=== PATIENT | female | born 1955 | race Caucasian/White ===

== ENCOUNTER 2020-04-09 05:16 | Inpatient (IN) | payer OTHER ==
[~2020-04-09] VITALS: Ht 152.4 cm; Wt 66.3 kg
[2020-04-09] VITALS (8 sets, daily range): BP systolic 100–124; BP diastolic 59–72
[2020-04-09] MEDS ORDERED: OMEP40CA97 PO (05:32)
[2020-04-09] MEDS ORDERED: MULT1TAB8 PO (05:32)
[2020-04-09] MEDS ORDERED: GI COCKTAIL 50ML BTL(HYOSCYAMINE/MAALOX/LIDOCAINE VISCOUS)(1:3:1) PO ONE (05:45)
[2020-04-09] MEDS ORDERED: ISOVUE-370 76% 100ML VIAL As Ordered ONE (05:46)
[2020-04-09 06:04] LABS: BASO # 0.1 10^3/uL (0.0-0.2); BASO % 0.5 % (0.0-1.0); EOS # 0.2 10^3/uL (0.0-0.5); EOS % 1.6 % (0.0-3.0); HEMATOCRIT 43.8 % (36.0-47.0); HEMOGLOBIN 13.5 g/dl (12.0-15.5); LYMPH # 2.1 10^3/uL (1.5-5.0); LYMPH % 19.3 % (24.0-44.0); MEAN CORPUSCULAR HEMOGLOBIN 28.7 pg (27.0-33.0); MEAN CORPUSCULAR HGB CONC 30.8 g/dl (32.0-36.5); MEAN CORPUSCULAR VOLUME 93.2 fl (80.0-96.0); MONO # 0.5 10^3/uL (0.0-0.8); MONO % 4.2 % (0.0-5.0); NEUTROPHILS # 7.9 10^3/uL (1.5-8.5); NEUTROPHILS % 73.3 % (36.0-66.0); PLATELET COUNT, AUTOMATED 249 10^3/uL (150-450); WHITE BLOOD COUNT 10.8 10^3/uL (4.0-10.0)
[2020-04-09 06:30] LABS: ALBUMIN 3.1 GM/DL (3.2-5.2); ALT/SGPT 23 U/L (12-78); BILIRUBIN,DIRECT < 0.1 MG/DL (0.0-0.2); BILIRUBIN,TOTAL 0.2 MG/DL (0.2-1.0); BLOOD UREA NITROGEN 12 MG/DL (7-18); CALCIUM LEVEL 8.1 MG/DL (8.8-10.2); CARBON DIOXIDE LEVEL 26 MEQ/L (21-32); CHLORIDE LEVEL 110 MEQ/L (98-107); CK-MB VALUE MASS < 1.0 NG/ML (<3.6); CPK CREATINE PHOSPHOKINASE 75 U/L (26-192); CREATININE FOR GFR 0.68 MG/DL (0.55-1.30); GLOMERULAR FILTRATION RATE > 60.0 (>45); GLUCOSE, FASTING 127 MG/DL (70-100); LIPASE 119 U/L (73-393); MB/CK RELATIVE INDEX 1.33 (< OR =4); POTASSIUM SERUM 3.6 MEQ/L (3.5-5.1); SODIUM LEVEL 143 MEQ/L (136-145); TOTAL PROTEIN 6.1 GM/DL (6.4-8.2); TROPONIN I < 0.02 NG/ML (< 0.10)
--- NOTE | 2020-04-09 07:50 | REPVR ---
PROCEDURE INFORMATION: Exam: CT Angiography Chest With Contrast Exam date and time: 04/09/2020 5:38 AM Age: 64 years old Clinical indication: Chest pain; Type not specified; Additional info: Substernal pain TECHNIQUE: Imaging protocol: Computed tomographic angiography of the chest with intravenous contrast. 3D rendering (Not supervised by radiologist): MIP and/or 3D reconstructed images were created by the technologist. Radiation optimization: All CT scans at this facility use at least one of these dose optimization techniques: automated exposure control; mA and/or kV adjustment per patient size (includes targeted exams where dose is matched to clinical indication); or iterative reconstruction. Contrast material: ISO; Contrast volume: 100 ml; Contrast route: INTRAVENOUS (IV); COMPARISON: No relevant prior studies available. FINDINGS: Pulmonary arteries: Normal. No pulmonary emboli. Aorta: Atherosclerotic disease of the thoracic aorta. Lungs: Bilateral dependent atelectasis. Pleural space: Unremarkable. No pneumothorax. No pleural effusion. Heart: Unremarkable. No cardiomegaly. No pericardial effusion. Lymph nodes: Unremarkable. No enlarged lymph nodes. Bones/joints: Multilevel degenerative disease of thoracic spine. Dextroscoliosis. Cervical spinal fusion hardware. Soft tissues: Unremarkable. IMPRESSION: No acute pulmonary embolic disease. Bilateral dependent atelectasis. Electronically signed by: Yo Caal On 04/09/2020 07:49:54 AM
--- NOTE | 2020-04-09 07:58 | REPVR ---
PROCEDURE INFORMATION: Exam: CT Abdomen And Pelvis With Contrast Exam date and time: 04/09/2020 5:38 AM Age: 64 years old Clinical indication: Abdominal pain; Generalized TECHNIQUE: Imaging protocol: Computed tomography of the abdomen and pelvis with intravenous contrast. Radiation optimization: All CT scans at this facility use at least one of these dose optimization techniques: automated exposure control; mA and/or kV adjustment per patient size (includes targeted exams where dose is matched to clinical indication); or iterative reconstruction. Contrast material: ISO; Contrast volume: 100 ml; Contrast route: INTRAVENOUS (IV); COMPARISON: No relevant prior studies available. FINDINGS: Liver: Hepatomegaly and geographic steatosis. Indeterminate 1.1 cm low-attenuation right hepatic lobe lesion. Gallbladder and bile ducts: Status post cholecystectomy. Pancreas: Pancreas divisum. Spleen: Normal. No splenomegaly. Adrenal glands: Bilateral adrenal hyperplasia. Kidneys and ureters: Right renal cyst. Stomach and bowel: Status post Sharlene-en-Y gastric bypass. Status post right hemicolectomy and small bowel resection. Bowel wall thickening involving multiple loops of small and large bowel possibly reflecting under distension or enterocolitis. Appendix: No evidence of appendicitis. Intraperitoneal space: Palomo pneumoperitoneum and small complex ascites. Vasculature: Mild atherosclerotic disease. Lymph nodes: Mesenteric adenopathy. Urinary bladder: Unremarkable as visualized. Reproductive: Unremarkable as visualized. Bones/joints: Postoperative changes the lumbar spine. Marked kyphosis the thoracolumbar spine multilevel spinal canal and neural foraminal stenosis. Soft tissues: Unremarkable. IMPRESSION: Palomo pneumoperitoneum and small complex ascites. Correlate for recent abdominal surgery. Alternatively hollow viscus perforation is considered. Hepatomegaly and geographic steatosis. Indeterminate 1.1 cm low-attenuation right hepatic lobe lesion. Status post Sharlene-en-Y gastric bypass. Status post right hemicolectomy and small bowel resection. Bowel wall thickening involving multiple loops of small and large bowel possibly reflecting under distension or enterocolitis. COMMENTS: Consistent with the [employer]'s Incidental Findings Committee white paper (J Am Lorie Radiol 2018): Any incidental renal lesion less than 1 cm or classified as too small to characterize, or any incidental cystic renal lesion characterized as simple-appearing, is likely benign. No follow-up imaging is recommended for these lesions per consensus recommendations based on imaging criteria. Electronically signed by: Yo Caal On 04/09/2020 07:58:04 AM
[2020-04-09] MEDS ORDERED: metroNIDAZOLE 500 MG in IV 1 EA IV ONE (08:30)
[2020-04-09] MEDS ORDERED: CIPROFLOXACIN 400 MG in IV 1 EA IV ONE (08:30)
[2020-04-09] MEDS ORDERED: NS 1,000 ML IV SCH (08:30)
[2020-04-09] MEDS ORDERED: ONDANSETRON 4MG/2ML VIAL IV ONE (08:45)
[2020-04-09] MEDS ORDERED: MORPHINE 2 MG/ML 1ML VIAL (J2270) IV PRN (08:45)
[2020-04-09] MEDS ORDERED: ALBU8.5H INH (08:46)
[2020-04-09] MEDS ORDERED: VITA100018 PO (08:46)
[2020-04-09] MEDS ORDERED: D31000TA2 PO (08:46)
[2020-04-09] MEDS ORDERED: TAMO20TA8 PO (08:46)
[2020-04-09] MEDS ORDERED: RA B2500 PO (08:46)
[2020-04-09] MEDS ORDERED: CALC600T61 PO (08:46)
[2020-04-09 09:25] LABS: RSV AMPLIFICATION NEGATIVE (NEGATIVE)
[2020-04-09] MEDS ORDERED: LR 1,000 ML IV SCH ×3 (09:58→14:00)
[2020-04-09] MEDS ORDERED: KETOROLAC 30 MG/ML 1ML VIAL IV PRN (10:00)
[2020-04-09] MEDS ORDERED: BUPIVACAINE HCL 0.25% 30ML VIAL As Ordered ONE (11:14)
[2020-04-09] MEDS ORDERED: propofoL 200 MG/20 ML VIAL As Ordered ONE (11:15)
[2020-04-09] MEDS ORDERED: METOCLOPRAMIDE INJ 10MG/2ML VIAL (J2765 PER 1) As Ordered ONE (11:15)
[2020-04-09] MEDS ORDERED: ONDANSETRON 4MG/2ML VIAL As Ordered ONE (11:15)
[2020-04-09] MEDS ORDERED: MIDAZOLAM INJ 2MG/2ML VIAL (J2250 PER 1MG) As Ordered ONE (11:15)
[2020-04-09] MEDS ORDERED: SUGAMMADEX SODIUM 500 MG/5 ML VIAL (BRIDION) As Ordered ONE (11:15)
[2020-04-09] MEDS ORDERED: fentaNYL 250 MCG/5 ML INJECTION (J3010) As Ordered ONE (11:15)
[2020-04-09] MEDS ORDERED: LIDOCAINE 2% 100MG/5ML SDV (FOR ANES.) As Ordered ONE (11:15)
[2020-04-09] MEDS ORDERED: PHENYLephrine HCL 500 MCG/5 ML (100MCG/ML) SYRINGE (J2370) As Ordered ONE (11:15)
[2020-04-09] MEDS ORDERED: dexameTHASONE 4 MG/ML 1ML VIAL (J1100 PER 1MG) As Ordered ONE (11:15)
[2020-04-09] MEDS ORDERED: SUCCINYLCHOLINE 100 MG/5 ML SYRINGE (J0330) As Ordered ONE (11:15)
[2020-04-09] MEDS ORDERED: ROCURONIUM BROMIDE 50 MG/5 ML VIAL As Ordered ONE (11:15)
[2020-04-09] MEDS ORDERED: ePHEDrine SULFATE 25 MG/5 ML(5MG/ML) SYRINGE As Ordered ONE ×3 (11:23→12:45)
[2020-04-09] MEDS ORDERED: HYDROmorphone HCL 2 MG/ML 1ML VIAL (J1170) As Ordered ONE (11:43)
[2020-04-09] MEDS ORDERED: ACETAMINOPHEN 1000MG 100ML IV BTL (OFIRMEV) (J0131 PER 10MG) As Ordered ONE (12:37)
[2020-04-09] MEDS ORDERED: LACRILUBE (AKWA TEARS) OPHTH OINT 3.5 GM As Ordered ONE (13:17)
[2020-04-09] MEDS ORDERED: ALBUTEROL 90 MCG/ACT 8GM HFA INHALER INH PRN (13:45)
[2020-04-09] MEDS ORDERED: oxyCODONE 5MG TAB PO PRN (14:00)
[2020-04-09] MEDS ORDERED: fentaNYL 100 MCG/2 ML INJECTION (J3010) IV PRN (14:00)
[2020-04-09] MEDS ORDERED: HYDROMORPHONE HCL 0.5 MG/ 0.5 ML SYRINGE (J1170 PER 1) IV PRN (14:00)
[2020-04-09] MEDS ORDERED: ONDANSETRON 4MG/2ML VIAL IV PRN (14:00)
[2020-04-09] MEDS: PANTOPRAZOLE 40MG VIAL (C9113 PER 1) IV SCH ×2 (15:55→21:47)
[2020-04-09] MEDS: metroNIDAZOLE 500 MG in IV 1 EA IV SCH (17:07)
[2020-04-09] MEDS: CIPROFLOXACIN 400 MG in IV 1 EA IV SCH (22:02)
[2020-04-09] MEDS: MORPHINE 2 MG/ML 1ML VIAL (J2270) IV PRN (22:02)
[2020-04-09] MEDS: NS 1,000 ML IV SCH (22:03)
[2020-04-10] MEDS: metroNIDAZOLE 500 MG in IV 1 EA IV SCH ×3 (01:32→16:26)
[2020-04-10] MEDS: MORPHINE 2 MG/ML 1ML VIAL (J2270) IV PRN (01:37)
[2020-04-10 02:00] VITALS: BP 125/62
[2020-04-10 06:00] VITALS: BP 105/49
[2020-04-10] MEDS: CIPROFLOXACIN 400 MG in IV 1 EA IV SCH ×2 (07:57→21:51)
[2020-04-10] MEDS: NS 1,000 ML IV SCH (07:57)
[2020-04-10 08:10] LABS: BASO % 0.1 % (0.0-1.0); EOS % 0.2 % (0.0-3.0); LYMPH # 1.2 10^3/uL (1.5-5.0); LYMPH % 9.5 % (24.0-44.0); MEAN CORPUSCULAR HEMOGLOBIN 30.1 pg (27.0-33.0); MEAN CORPUSCULAR HGB CONC 31.8 g/dl (32.0-36.5); MEAN CORPUSCULAR VOLUME 94.7 fl (80.0-96.0); MONO # 0.8 10^3/uL (0.0-0.8); MONO % 6.1 % (0.0-5.0); NEUTROPHILS # 10.3 10^3/uL (1.5-8.5); NEUTROPHILS % 83.7 % (36.0-66.0); PLATELET COUNT, AUTOMATED 179 10^3/uL (150-450); RED BLOOD COUNT 3.59 10^6/uL (4.00-5.40); WHITE BLOOD COUNT 12.3 10^3/uL (4.0-10.0)
[2020-04-10 08:11] LABS: HEMOGLOBIN 10.8 g/dl (12.0-15.5)
--- NOTE | 2020-04-10 09:22 | ECGEPIP ---
[facility] - ED Test Date: 2020-04-09 Pat Name: MAYNOR REECE Department: Room: - Gender: Female Development Lead: : 1955 Requested By: HERNANDO Castaneda Order Number: [id number] Reading MD: Ivy Reilly Measurements Intervals [place] Rate: 59 P: 38 GA: 126 QRS: -18 QRSD: 94 T: 60 QT: 454 QTc: 450 Interpretive Statements SINUS BRADYCARDIA NSTTW abnormalities No prior Electronically Signed on 04-10-2020 9:22:25 EST by Ivy Reilly
[2020-04-10 09:25] LABS: BLOOD UREA NITROGEN 6 MG/DL (7-18); CARBON DIOXIDE LEVEL 27 MEQ/L (21-32); CHLORIDE LEVEL 113 MEQ/L (98-107); CREATININE FOR GFR 0.46 MG/DL (0.55-1.30); GLOMERULAR FILTRATION RATE > 60.0 (>45); GLUCOSE, FASTING 79 MG/DL (70-100); POTASSIUM SERUM 3.9 MEQ/L (3.5-5.1); SODIUM LEVEL 144 MEQ/L (136-145)
[2020-04-10 10:00] VITALS: BP 104/55
[2020-04-10] MEDS: PANTOPRAZOLE 40MG VIAL (C9113 PER 1) IV SCH ×2 (10:10→21:51)
[2020-04-10] MEDS: ACETAMINOPHEN 325 MG/10.15 ML UDC PO PRN ×3 (10:11→22:03)
[2020-04-10 14:00] VITALS: BP 115/61
[2020-04-10 18:00] VITALS: BP 113/58
[2020-04-11] MEDS: metroNIDAZOLE 500 MG in IV 1 EA IV SCH (00:49)
[2020-04-11] MEDS: ONDANSETRON 4MG/2ML VIAL IV PRN ×2 (04:01→10:07)
[2020-04-11 06:00] VITALS: BP 124/66
[2020-04-11 07:30] LABS: BASO % 0.3 % (0.0-1.0); EOS # 0.2 10^3/uL (0.0-0.5); EOS % 1.6 % (0.0-3.0); HEMATOCRIT 36.1 % (36.0-47.0); HEMOGLOBIN 11.5 g/dl (12.0-15.5); LYMPH # 1.2 10^3/uL (1.5-5.0); MEAN CORPUSCULAR HEMOGLOBIN 29.7 pg (27.0-33.0); MEAN CORPUSCULAR HGB CONC 31.9 g/dl (32.0-36.5); MEAN CORPUSCULAR VOLUME 93.3 fl (80.0-96.0); MONO # 0.7 10^3/uL (0.0-0.8); MONO % 6.2 % (0.0-5.0); NEUTROPHILS # 8.6 10^3/uL (1.5-8.5); NEUTROPHILS % 80.1 % (36.0-66.0); PLATELET COUNT, AUTOMATED 197 10^3/uL (150-450); RED BLOOD COUNT 3.87 10^6/uL (4.00-5.40); WHITE BLOOD COUNT 10.8 10^3/uL (4.0-10.0)
[2020-04-11] MEDS ORDERED: SODIUM CHLORIDE NASAL 0.65% SPRAY BTL (OCEAN) PRN (07:30)
[2020-04-11] MEDS: PANTOPRAZOLE 40MG VIAL (C9113 PER 1) IV SCH ×2 (09:33→21:20)
[2020-04-11] MEDS: CIPROFLOXACIN 400 MG in IV 1 EA IV SCH ×2 (09:33→21:20)
[2020-04-11 10:00] VITALS: BP 124/67
[2020-04-11 14:00] VITALS: BP 127/71
[2020-04-11] MEDS: ACETAMINOPHEN 325 MG/10.15 ML UDC PO PRN ×2 (14:57→22:57)
[2020-04-11 18:00] VITALS: BP 127/78
--- NOTE | 2020-04-11 20:45 | IPN ---
PROGRESS NOTE DATE: 04/11/2020 HISTORY: Patient is now postoperative day #2 from laparoscopic repair of a perforated ulcer of the jejunum just below her gastrojejunal anastomosis. Today, she reports that she just does not feel well, she feels at times chilled and last night was having some nausea. She did tolerate clear liquids pretty well yesterday. She reports she just feels dried out or dehydrated. VITAL SIGNS: Shows that she had a maximum temperature (T-max) early this morning of 100.3. She has otherwise been afebrile. Her pulse is in the 70s and 80s. Blood pressure is excellent and her room air oxygen saturation is in the mid to upper 90s. Intake and output shows that yesterday she had 2700 in with 1650 out. She does have a liter of urine output today and has had two bowel movements. PHYSICAL EXAMINATION: Patient is lying quietly in a darkened room, lying on her left side. She rouses readily to voice. Skin is warm and dry. Heart exam shows a regular rhythm and she is not tachycardiac. The abdomen is flat. She has bowel sounds present. She has no undue tenderness. LABORATORY STUDIES: Today, patient has only a CBC with a differential which shows a white count of 11, hemoglobin 12, hematocrit 36, and a platelet count of 197,000. Differential count shows 80% neutrophils, 11% lymphocytes, and 6% monocytes. IMPRESSION: Patient had been doing extremely well following her patched closure of her perforated jejunal ulcer. Today, she reports that she is feeling just unwell with a chilled feeling at times and she has had a low-grade temperature early this afternoon. She reports feeling dehydrated but I advised her that her urine output has been excellent and she took liquids well and I do not think dehydration is the issue. She was somewhat nauseous last evening and I think this may have followed a dose of Flagyl. PLAN: I will stop her Flagyl. We will follow her temperature. I will repeat another complete blood count (CBC) in the morning. It is certainly possible that this fever and chilled sensation represents results of peritoneal contamination but we will need to monitor her closely. I will allow her to take some full liquids today if she feels up to it. If she does not take liquids well, then we may wish to reinstitute some IV fluid.
[2020-04-11 22:00] VITALS: BP 130/83
[2020-04-12 06:00] VITALS: BP 132/68
[2020-04-12] MEDS: PIPERACILLIN/TAZOBACTAM SOD 3.375 GM in D5W MINI-BAG PLUS 50 ML IV SCH ×3 (09:53→20:46)
[2020-04-12] MEDS: PANTOPRAZOLE 40MG VIAL (C9113 PER 1) IV SCH ×2 (09:53→20:46)
[2020-04-12 10:00] VITALS: BP 120/70
[2020-04-12 14:00] VITALS: BP 121/74
--- NOTE | 2020-04-12 14:32 | IPN ---
PROGRESS NOTE DATE: 04/09/2020 HISTORY: Patient underwent a laparoscopic Stephen patch repair of a perforated gastrojejunal anastomotic ulcer yesterday. She has done very well since. She denies any significant abdominal pain. She had one dose of morphine very early this morning and had a dose of Tylenol at 10 o'clock this morning. She remains on Cipro and Flagyl. Vital signs show that she has had a maximum temperature of 99.9. Pulse is in the 70s, and her blood pressure is good. Intake and output show that she has had 500 mL of urine output so far today and remains on intravenous (IV) normal saline. PHYSICAL EXAMINATION: Patient is lying quietly in the hospital bed. She is alert and oriented. HEART: Shows a regular rhythm. ABDOMEN: Flat. Her dressings are clean and dry. She has some bowel sounds present, and the abdomen has only some very mild expected tenderness. LABORATORY STUDIES: This morning showed a white count of 12 with a differential showing 84% neutrophils, 10% lymphocytes, and 6% monocytes. Hemoglobin and hematocrit were 11 and 34. Chemistry profile showed sodium 144, potassium 3.9, chloride 113, CO2 of 27, BUN of 6, creatinine of 0.46, and a glucose of 79. Her lactic acid was normal at 0.8. IMPRESSION: Patient is doing very well postoperative day #1 from repair of her perforated ulcer. PLAN: I will allow the patient to take some clear liquids, but she was instructed to take these as small amounts during the course of the day. I will keep her on 50 mL an hour of normal saline. Protonix will be continued IV. Cipro and Flagyl will continue. I will recheck the complete blood count (CBC) in the morning.
--- NOTE | 2020-04-12 14:32 | HPE ---
HISTORY AND PHYSICAL DATE OF ADMISSION: 04/09/2020 ADMITTING DIAGNOSIS: Perforated viscus, possible perforated gastrojejunal anesthesia, status post gastric bypass. HISTORY OF PRESENT ILLNESS: The patient is a 64-year-old woman who was awakened at approximately 4 o'clock on the morning of April 09 by upper abdominal pain. She described it as being in the epigastrium and then across the abdomen and up into both shoulders. She is status post a Sharlene-en-Y gastric bypass approximately 5 years ago in [place]. She had been on omeprazole until fairly recently, when she stopped this thinking it was no longer important. She had been living in [place] at the time of her surgery but has now relocated and is now living in [place]. In the emergency department, she was found to have tenderness fairly diffusely in the abdomen. Her white blood cell count was only minimally elevated, but a CT scan of the abdomen and pelvis showed free air in the upper abdomen, particularly in the area anterior to her gastrojejunal anastomotic area. I was consulted, and the patient is now being admitted to undergo surgery for her perforation. ALLERGIES: Patient reports no known drug allergies. ADMISSION MEDICATIONS: - albuterol inhaler two puffs four times daily as needed for shortness of breath - biotin 2500 mcg by mouth daily - calcium carbonate 600 mg by mouth daily - cholecalciferol 1000 units by mouth daily - cyanocobalamin 1000 mcg by mouth daily - multivitamin daily - omeprazole 40 mg by mouth daily, although she has not been taking this recently - Tamoxifen 20 mg by mouth every night MEDICAL HISTORY: Patient denies any significant heart, lung, or endocrine problem. She was diagnosed with breast cancer several years ago and underwent a lumpectomy with sentinel lymph node biopsy on the right breast. She had postoperative radiation and remains on Tamoxifen. She is status post a gastric bypass. She is a former smoker, who reports a history of asthma. She does have a history of osteoarthritis and has had some significant spine surgery. SURGICAL HISTORY: Patient had undergone two sections many years ago. She subsequently had a dilatation and curettage (D and C). She has had surgery for an ankle fracture. She had a cervical spine fusion. She underwent a lower spine fusion at age 14. She had her gastric bypass approximately 5 years ago. Following her gastric bypass, she had two abdominal hernias repaired, which apparently were done laparoscopically also in [place]. Her most recent surgery was in early , and she had a laparoscopic cholecystectomy. FAMILY HISTORY: Noncontributory. SOCIAL HISTORY: Patient is . She is a former smoker and denies any significant alcohol intake. She reports her weight was approximately 240 pounds before her gastric bypass. REVIEW OF SYSTEMS: Patient denies any chest pain, palpitations, shortness of breath, cough, wheezing, or sputum production. She has had no dysuria or hematuria and denies any history of renal stones. She does have some occasional diarrhea. Bowel movements are somewhat irregular. She has had no melena or hematochezia. She had a colonoscopy to too long ago, within the last couple years. She does have some chronic back discomfort but is not currently on any medications for this. She denies any history of seizure or stroke. She has had no history of deep venous thrombosis (DVT) or pulmonary embolus (PE). PHYSICAL EXAMINATION: Reveals a thin, pleasant woman, appearing somewhat uncomfortably, lying on the stretcher in the emergency department. She is alert and oriented. Vital signs the emergency department show a pulse in the 60s with a blood pressure of approximately 110 systolic. Her pulse oximetry is good. Skin is perhaps mildly pale. Skin is otherwise warm and dry. Sclerae are anicteric. Neck is supple. Heart exam shows a regular rhythm, and she is not tachycardic. The lungs are generally clear bilaterally. The abdomen is perhaps mildly full. She has several small scars evident, consistent with prior laparoscopic surgery. There is no evident hernia currently. She does have some faint bowel sounds identified. There is moderate tenderness across the upper abdomen. There does seem to be some mild guarding. Lower extremities are without edema, and she has palpable pedal pulses as well as palpable radial pulses. LABORATORY STUDIES: Show a CBC with a white count of 11, hemoglobin 14, hematocrit 44, and a platelet count of 249,000. Differential count shows 73% neutrophils and 19% lymphocytes. Chemistry profile showed sodium 143, potassium 3.6, chloride 110, carbon dioxide 26, BUN 12, creatinine 0.68, and a glucose of 127. Lactic acid was 2.9. Liver function tests were normal. Total protein is 6.1 with an albumin of 3.1. She had a troponin of less than 0.02, and her lipase was normal at 119. Her respiratory disease panel showed her to be negative for COVID, influenza A and B, and respiratory syncytial virus (RSV). IMAGING: Included a CT angiogram of the chest. Apparently ordered because of discomfort extending into the epigastrium and lower chest. This showed no evidence of pulmonary emboli with a little bit of atelectasis bilaterally. A CT scan o the abdomen and pelvis revealed free air in the upper abdomen with evidence for her previous gastric bypass. She was noted to have a small amount of free intraperitoneal fluid. The gallbladder was surgically absent. I did not see any definite abdominal wall hernia or any definite abdominal wall mesh. IMPRESSION: 1. Perforated viscus, most likely a perforation of her gastrojejunal anastomosis from ulceration. 2. Status post Sharlene-en-Y gastric bypass. 3. History of right breast cancer. PLAN: Patient was counseled that surgery is indicated to address her acute perforation. I advised her that I would recommend we proceed laparoscopically, but it may be necessary to convert to an open procedure if necessary. She will receive intravenous (IV) antibiotics, and Dr. Groves has already ordered ciprofloxacin, which she has received, and Flagyl, which is being started. She will receive a bolus of IV fluid, and we will then take her to the operating room as soon as can be arranged. She was counseled the risks and possible benefits of the surgery. She had a opportunity to ask questions. She desires to proceed with the surgery and will be admitted for same.
--- NOTE | 2020-04-12 14:37 | RO ---
OPERATIVE NOTE DATE OF OPERATION: 04/09/2020 PREOPERATIVE DIAGNOSIS: Perforated viscus, probable perforated gastrojejunal anastomosis. POSTOPERATIVE DIAGNOSIS: Perforated ulcer of gastrojejunal bypass. PROCEDURE PERFORMED: Laparoscopic Stephen patch closure of perforated ulcer of gastrojejunal anastomosis, status post gastric bypass. SURGEON: Tk Jaimes MD ANESTHESIA: General. INDICATION FOR THE PROCEDURE: The patient is 64-year-old woman who had undergone a gastric bypass approximately 5 years earlier. She was awakened at about 4 o'clock in the morning on the April 09 with severe pain in the epigastrium, which radiated up into both shoulders and then became more diffuse. She was seen in the emergency department where a CT scan showed free intraperitoneal air with suggested leak site in the upper abdomen. She was counseled for surgery and is now for laparoscopy and possible laparotomy. OPERATIVE PROCEDURE: The patient received antibiotics and a fluid bolus prior to coming to the operating room. She was placed on the table in a supine position. She was placed under general endotracheal anesthesia. A Soto catheter was inserted. She was moved in a low lithotomy position with the legs in padded leg holders. The abdomen was prepped and draped in a sterile fashion. 25% Marcaine was infiltrated at each of the trocar sites before insertion. I selected a point approximately 5 cm above the umbilicus and several cm to the left of the midline for the first trocar site. A short transverse incision was made and the Veress needle was inserted. After a positive hanging drop test, the abdomen was inflated with carbon dioxide gas. A 5 mm port was placed over a 5 mm scope and advanced through the abdominal wall without difficulty. Initial examination showed some scattered lightly yellow/green tinted fluid in both paracolic gutters and in the left upper quadrant and around the liver. There was a little bit of fibrinous debris beneath the edge of the liver. An 11 mm port was placed higher up and further to the left in the left upper quadrant. A grasper was inserted and the edge of the liver could be lifted and a large amount of debris lying beneath the liver. There was suggestion of a perforation in the jejunal limb just at or below the gastrojejunal anastomosis. A 5 mm port was placed in the right upper quadrant and a liver retractor was inserted and the left lobe of the liver was elevated. A 4th trocar, which was also 5 mm was placed slightly to the right of the midline in the epigastrium. The patient was tilted to a 10 to 15 degree reverse Trendelenburg position. Graspers were inserted. Some inflammatory attachments between portions of the omentum in the area of the gastrojejunal anastomosis broke apart readily. An obvious approximately 5 mm perforation was identified in the anterior aspect of the small bowel. This appeared to lie just below the gastrojejunal anastomosis. Some of the exudate in this area was irrigated and aspirated. At this point, I also irrigated and aspirated pockets of fluid from above the right lobe of the liver and in the high left upper quadrant around the splen. Some debris beneath the liver was also irrigated and removed. I elected to proceed with a laparoscopic patch closure of her perforated ulcer. There was a very readily available frond of omental fat just about the area of the perforation, which would readily reach down over this site. Three sutures of 2-0 silk were placed through the bed of the ulcer. These were spaced just at the top edge of the ulcer through the middle and then just below the bottom edge. All sutures were left long and intact and these were placed within the abdomen to avoid them becoming tangled. The frond omentum was then pulled down across the ulcer and the superior most suture was then tied down using a knot pusher. The second suture was then tied and then the third. The sutures were cut and the needles recovered. This appeared to nicely cover the area of the ulcer. The liver retractor was then removed. The pelvis was irrigated of some turbid fluid. She was returned to a flat position to facilitate removal of any remaining irrigation fluid. I elected not to place a drain. Re-inspection showed no evidence of any significant residual turbid fluid in the upper or lower quadrants. I placed a 2-0 Vicryl suture down through the 11 mm port; and with the port partially removed, I placed this across the inner aspect of this trocar site and the suture was then fed back out the port and the port was removed. This suture was then tied down to close the inner aspect of the 11 mm port site. The abdomen was then deflated and the trocars were removed. The skin incisions were all closed with buried sutures of 4-0 Vicryl and Steri-Strips. Her Soto catheter was removed. Light dressings were applied to her incisions. She was awakened in the operating room, extubated and moved to the recovery room in stable condition.
[2020-04-12 18:00] VITALS: BP 121/70
[2020-04-12 22:00] VITALS: BP 122/69
[2020-04-13 02:00] VITALS: BP 126/58
[2020-04-13] MEDS: PIPERACILLIN/TAZOBACTAM SOD 3.375 GM in D5W MINI-BAG PLUS 50 ML IV SCH ×3 (02:58→15:11)
[2020-04-13 06:00] VITALS: BP 143/72
[2020-04-13 06:56] LABS: BASO # 0.1 10^3/uL (0.0-0.2); BASO % 1.2 % (0.0-1.0); EOS # 0.4 10^3/uL (0.0-0.5); EOS % 7.2 % (0.0-3.0); HEMATOCRIT 36.8 % (36.0-47.0); HEMOGLOBIN 11.6 g/dl (12.0-15.5); LYMPH # 1.2 10^3/uL (1.5-5.0); LYMPH % 21.9 % (24.0-44.0); MEAN CORPUSCULAR HGB CONC 31.5 g/dl (32.0-36.5); MONO # 0.5 10^3/uL (0.0-0.8); MONO % 9.2 % (0.0-5.0); NEUTROPHILS # 3.3 10^3/uL (1.5-8.5); NEUTROPHILS % 58.4 % (36.0-66.0); PLATELET COUNT, AUTOMATED 224 10^3/uL (150-450); WHITE BLOOD COUNT 5.7 10^3/uL (4.0-10.0)
[2020-04-13] MEDS: PANTOPRAZOLE 40MG VIAL (C9113 PER 1) IV SCH (08:28)
[2020-04-13 10:00] VITALS: BP 116/71
[2020-04-13 14:00] VITALS: BP 116/71
[2020-04-13] MEDS ORDERED: PANT40TA29 PO (18:44)
== END 2020-04-13 19:06 | disposition home or self-care (01) | DRG 223 ==
LOC: M ED 05:16 → M ED INP 09:58 → M MSPAV 14:56
PROVIDERS: ADMIT Surgery; ATTEND Surgery
PROC: 0DUA47Z Supplement Jejunum with Autologous Tissue Substitute, Percutaneous Endoscopic Approach (ICD-10-PCS; principal; 2020-04-09 10:13)
DX: K28.1 Acute gastrojejunal ulcer with perforation (principal); C50.919 Malignant neoplasm of unspecified site of unspecified female breast; J45.909 Unspecified asthma, uncomplicated; Z79.899 Other long term (current) drug therapy; Z87.891 Personal history of nicotine dependence; Z98.84 Bariatric surgery status

== ENCOUNTER → 2020-05-11 | Outpatient (CLI) | payer OTHER ==
[~2020-05-11] MED LIST: ALBU8.5H INH; CALC600T61 PO; CENT1TAB PO; D 101000 PO; D31000TA2 PO; MULT1TAB8 PO; OMEP40CA97 PO; PANT40TA29 PO; PROHANCE 279.3MG/ML 15ML VIAL As Ordered ONE; RA B2500 PO; TAMO20TA8 PO; VIAC1CHW PO; VITA100018 PO
--- NOTE | 2020-05-11 14:59 | REPVR ---
PROCEDURE INFORMATION: Exam: MR Head Without and With Contrast Exam date and time: 05/11/2020 2:33 PM Age: 64 years old Clinical indication: Condition or disease; History of cancer (specify primary cancer site): ; Primary cancer: Breast; Additional info: Breast CA, dizziness TECHNIQUE: Imaging protocol: MR of the head without and with intravenous contrast. Contrast material: PROHANCE; Contrast volume: 11 ml; Contrast route: INTRAVENOUS (IV); COMPARISON: No relevant prior studies available. FINDINGS: Brain: There are occasional nonspecific foci of high signal abnormality in the flores radiata and centrum semiovale. These are best seen on the flair images. These foci may represent areas of gliosis, demyelination, and/or chronic ischemic change. Cerebral ventricles: Normal. No ventriculomegaly. Bones/joints: Unremarkable. Paranasal sinuses: Normal as visualized. No acute sinusitis. Mastoid air cells: Normal as visualized. No mastoid effusion. Orbits: Unremarkable. Soft tissues: Unremarkable. Other findings: There is no abnormal enhancement. IMPRESSION: There are occasional nonspecific foci of high signal abnormality in the flores radiata and centrum semiovale. These are best seen on the flair images. These foci may represent areas of gliosis, demyelination, and/or chronic ischemic change. No acute infarct is identified. Electronically signed by: Shabbir Suero On 05/11/2020 14:59:43 PM
== END ==
LOC: M RAD 13:04
PROVIDERS: ATTEND Internal Medicine Medical Oncology
DX: R42 Dizziness and giddiness (principal); C50.919 Malignant neoplasm of unspecified site of unspecified female breast
CPT/HCPCS: 70553; A9576

== ENCOUNTER → 2020-06-17 | Outpatient (REF) | payer MEDICARE, MEDICAID ==
[~2020-06-17] MED LIST changes: -PROHANCE 279.3MG/ML 15ML VIAL As Ordered ONE
[2020-06-17 16:29] LABS: APPEARANCE, URINE CLEAR (CLEAR); BACTERIA, URINE AUTO NEGATIVE (NEGATIVE); BILIRUBIN, URINE AUTO NEGATIVE (NEGATIVE); BLOOD, URINE BLOOD NEGATIVE (NEGATIVE); COLOR, URINE STRAW (YELLOW); GLUCOSE, URINE (UA) AUTO NEGATIVE (NEGATIVE); KETONE, URINE AUTO NEGATIVE (NEGATIVE); LEUKOCYTE ESTERASE, URINE AUTO NEGATIVE (NEGATIVE); MUCUS, URINE SMALL (NEGATIVE); NITRITE, URINE AUTO NEGATIVE (NEGATIVE); PROTEIN, URINE AUTO NEGATIVE (NEGATIVE); RBC, URINE AUTO 1 /HPF (0-3); SPECIFIC GRAVITY URINE AUTO 1.003 (1.002-1.035); SQUAMOUS EPITHELIAL CELL UR AU 0 /HPF (0-6); UROBILINOGEN, URINE AUTO 0.2 mg/dL (0.0-2.0); WBC, URINE AUTO 1 /HPF (0-3)
[2020-06-17 16:36] LABS: BASO # 0.1 10^3/uL (0.0-0.2); EOS # 0.2 10^3/uL (0.0-0.5); EOS % 3.5 % (0.0-3.0); HEMATOCRIT 43.2 % (36.0-47.0); HEMOGLOBIN 13.2 g/dl (12.0-15.5); LYMPH # 1.7 10^3/uL (1.5-5.0); LYMPH % 25.2 % (24.0-44.0); MEAN CORPUSCULAR HEMOGLOBIN 28.9 pg (27.0-33.0); MEAN CORPUSCULAR HGB CONC 30.6 g/dl (32.0-36.5); MEAN CORPUSCULAR VOLUME 94.5 fl (80.0-96.0); MONO # 0.6 10^3/uL (0.0-0.8); MONO % 9.3 % (2.0-8.0); NEUTROPHILS # 4.1 10^3/uL (1.5-8.5); NEUTROPHILS % 60.1 % (36.0-66.0); PLATELET COUNT, AUTOMATED 225 10^3/uL (150-450); RED BLOOD COUNT 4.57 10^6/uL (4.00-5.40); WHITE BLOOD COUNT 6.9 10^3/uL (4.0-10.0)
[2020-06-17 16:42] LABS: ALBUMIN 3.6 GM/DL (3.2-5.2); ALT/SGPT 28 U/L (12-78); BILIRUBIN,TOTAL 0.3 MG/DL (0.2-1.0); BLOOD UREA NITROGEN 9 MG/DL (7-18); CALCIUM LEVEL 8.5 MG/DL (8.8-10.2); CARBON DIOXIDE LEVEL 29 MEQ/L (21-32); CHLORIDE LEVEL 112 MEQ/L (98-107); CHOLESTEROL LEVEL 187 MG/DL (<200); CHOLESTEROL RISK RATIO 2.527 (<5); CREATININE FOR GFR 0.67 MG/DL (0.55-1.30); FREE T4 1.18 NG/DL (0.76-1.46); GLOMERULAR FILTRATION RATE > 60.0 (>45); GLUCOSE, FASTING 117 MG/DL (70-100); HDL CHOLESTEROL 74 MG/DL (>40); LDL CHOLESTEROL 94 MG/DL (<100); NON-HDL-C 113 MG/DL; POTASSIUM SERUM 3.9 MEQ/L (3.5-5.1); SODIUM LEVEL 146 MEQ/L (136-145); TOTAL PROTEIN 6.4 GM/DL (6.4-8.2); TRIGLYCERIDES LEVEL 93 MG/DL (<150)
[2020-06-17 16:44] LABS: TOTAL 25(OH) VITAMIN D 33.4 NG/ML (30.0-100.0); VITAMIN B12 LEVEL > 2000 PG/ML
[2020-06-17 16:45] LABS: FOLATE > 24.0 NG/ML
== END ==
LOC: M SFHCCAPE 10:22
PROVIDERS: ATTEND Physician Assistant
DX: Z00.00 Encounter for general adult medical examination without abnormal findings (principal); E55.9 Vitamin D deficiency, unspecified; D50.9 Iron deficiency anemia, unspecified; E07.9 Disorder of thyroid, unspecified; E78.00 Pure hypercholesterolemia, unspecified

== ENCOUNTER → 2020-07-31 | Outpatient (CLI) | payer OTHER, MEDICARE, MEDICAID ==
[~2020-07-31] MED LIST changes: +AMIT50TA PO; +ASPI81TA28 PO; +BIOT1000 PO; +EXEM25TA PO; +VITA100016 PO
== END ==
LOC: M LABSMTC 09:05
PROVIDERS: ATTEND Anesthesiology
DX: Z01.812 Encounter for preprocedural laboratory examination (principal); Z20.822 Contact with and (suspected) exposure to COVID-19

== ENCOUNTER 2020-08-05 11:07 | Day surgery (SDC) | payer MEDICARE, MEDICAID ==
[~2020-08-05] VITALS: Ht 152.4 cm; Wt 62.1 kg
[~2020-08-05 11:07] MED LIST changes: +LIDOCAINE 2% 100MG/5ML SDV (FOR ANES.) As Ordered ONE; +NS 1,000 ML IV ONE; +fentaNYL 100 MCG/2 ML INJECTION (J3010) As Ordered ONE; +propofoL 200 MG/20 ML VIAL As Ordered ONE
--- NOTE | 2020-08-05 13:24 | ROOR ---
Patient Name: Cassandra Tucker Procedure Date: 08/05/2020 12:47 PM Date of : 1955 Age: 65 Room: [facility] Gender: Female Note Status: Finalized Procedure: Upper GI endoscopy Indications: Follow-up of acute gastrojejunal ulcer with perforation Providers: Tk Jaimes MD Referring MD: RODOLFO Her pa-c Requesting Provider: Medicines: Monitored Anesthesia Care Complications: No immediate complications. Procedure: Pre-Anesthesia Assessment: - Prior to the procedure, a History and Physical was performed, and patient medications and allergies were reviewed. The patient is competent. The risks and benefits of the procedure and the sedation options and risks were discussed with the patient. All questions were answered and informed consent was obtained. Patient identification and proposed procedure were verified by the physician, the nurse and the digital pre press operator in the procedure room. Mental Status Examination: alert and oriented. Airway Examination: normal oropharyngeal airway and neck mobility. Prophylactic Antibiotics: The patient does not require prophylactic antibiotics. Prior Anticoagulants: The patient has taken no previous anticoagulant or antiplatelet agents. ASA Grade Assessment: III - A patient with severe systemic disease. After reviewing the risks and benefits, the patient was deemed in satisfactory condition to undergo the procedure. The anesthesia plan was to use monitored anesthesia care (MAC). Immediately prior to administration of medications, the patient was re-assessed for adequacy to receive sedatives. The heart rate, respiratory rate, oxygen saturations, blood pressure, adequacy of pulmonary ventilation, and response to care were monitored throughout the procedure. The physical status of the patient was re-assessed after the procedure. The Endoscope was introduced through the mouth, and advanced to the efferent jejunal loop. The upper GI endoscopy was accomplished without difficulty. The patient tolerated the procedure well. Findings: The examined esophagus was normal. Evidence of a gastric bypass was found. A gastric pouch with a normal size was found. The gastrojejunal anastomosis was characterized by healthy appearing mucosa and visible sutures. Suture material at the anterior wall of the jejunum just below the gastrojejunostomy viramontes the site of her healed ulcer. The examined jejunum was normal. Impression: - Normal esophagus. - Gastric bypass with a normal-sized pouch. Gastrojejunal anastomosis characterized by healthy appearing mucosa and visible sutures. - Normal examined jejunum. - No specimens collected. Recommendation: - Discharge patient to home. - Resume previous diet. - Continue present medications. Procedure Code(s): --- Professional --- 10216, Esophagogastroduodenoscopy, flexible, transoral; diagnostic, including collection of specimen(s) by brushing or washing, when performed (separate procedure) Diagnosis Code(s): --- Professional --- Z98.84, Bariatric surgery status K28.1, Acute gastrojejunal ulcer with perforation CPT copyright 2019 [employer]. All rights reserved. The codes documented in this report are preliminary and upon ambulatory analyst review may be revised to meet current compliance requirements. Tk Jaimes MD Tk Jaimes MD 08/05/2020 1:23:44 PM Electronically signed by Tk Jaimes MD Number of Addenda: 0 Note Initiated On: 08/05/2020 12:47 PM Estimated Blood Loss: Estimated blood loss: none.
[2020-08-05 13:51] VITALS: BP 134/65
== END 2020-08-05 13:45 | disposition home or self-care (01) ==
LOC: M OPP 11:07
PROVIDERS: ATTEND Surgery
DX: K28.1 Acute gastrojejunal ulcer with perforation (principal); Z98.84 Bariatric surgery status; F41.9 Anxiety disorder, unspecified; F32.9 Major depressive disorder, single episode, unspecified; J45.909 Unspecified asthma, uncomplicated; M19.90 Unspecified osteoarthritis, unspecified site; Z85.3 Personal history of malignant neoplasm of breast; Z92.3 Personal history of irradiation; Z86.73 Personal history of transient ischemic attack (TIA), and cerebral infarction without residual deficits; Z87.891 Personal history of nicotine dependence; Z79.82 Long term (current) use of aspirin; Z79.899 Other long term (current) drug therapy
CPT/HCPCS: 43235; J3010

== ENCOUNTER 2020-10-15 09:47 | Emergency (ER) | payer MEDICAID, MEDICARE ==
[~2020-10-15] VITALS: Ht 152.4 cm; Wt 65.0 kg
[~2020-10-15 09:47] MED LIST changes: -LIDOCAINE 2% 100MG/5ML SDV (FOR ANES.) As Ordered ONE; -NS 1,000 ML IV ONE; +OMEP40CA4 PO; -OMEP40CA97 PO; -fentaNYL 100 MCG/2 ML INJECTION (J3010) As Ordered ONE; -propofoL 200 MG/20 ML VIAL As Ordered ONE
[2020-10-15] MEDS ORDERED: MECL-86 (10:03)
[2020-10-15] MEDS ORDERED: LIDOCAINE 5% (LIDODERM) PATCH TD ONE (12:25)
[2020-10-15] MEDS ORDERED: ACETAMINOPHEN 500 MG TAB PO ONE (12:25)
--- NOTE | 2020-10-15 12:44 | REP ---
INDICATION: Left buttock and hip pain. COMPARISON: None. TECHNIQUE: Two views left hip. FINDINGS: There is no acute fracture or dislocation. There is mild degenerative change at the hip joint. IMPRESSION: No acute fracture or dislocation. Mild degenerative changes. <Electronically signed by Jona Lopez > 10/15/20 [id number]
--- NOTE | 2020-10-15 12:52 | REPVR ---
PROCEDURE INFORMATION: Exam: CT Lumbar Spine Without Contrast Exam date and time: 10/15/2020 12:30 PM Age: 65 years old Clinical indication: Other: L sided back pain from buttock extending up TECHNIQUE: Imaging protocol: Computed tomography images of the lumbar spine without contrast. Radiation optimization: All CT scans at this facility use at least one of these dose optimization techniques: automated exposure control; mA and/or kV adjustment per patient size (includes targeted exams where dose is matched to clinical indication); or iterative reconstruction. COMPARISON: CT ABD/PEL W/IV CONTRAST ONLY 04/09/2020 6:44 AM FINDINGS: Vertebrae: There is severe kyphosis of the thoracolumbar junction. There is 8 mm of retrolisthesis of L2 on L3 and 6 mm of retrolisthesis of L3 on L4. Decompressive laminectomies and postoperative changes of the posterior elements are noted at L1 through L3. No acute fracture is identified. Discs/Spinal canal/Neural foramina: At least moderate spinal canal stenosis is present L2-L3. Moderate right and mild/moderate left neural foraminal narrowing is present at L2-L3. There is mild/moderate canal stenosis and moderate/severe bilateral neural foraminal narrowing at L3-L4. Soft tissues: Unremarkable. IMPRESSION: 1. No acute abnormality. 2. Chronic findings as discussed above. Electronically signed by: Ronnie Hess On 10/15/2020 12:52:17 PM
[2020-10-15] MEDS ORDERED: METH-1164 PO (12:57)
[2020-10-15 13:16] VITALS: BP 136/81
[2020-10-15] MEDS ORDERED: **NOTE PATIENT COMMENT** MISC XX SCH (21:00)
== END 2020-10-15 13:21 | disposition home or self-care (01) ==
LOC: M ED 09:47
DX: M54.32 Sciatica, left side (principal); M48.061 Spinal stenosis, lumbar region without neurogenic claudication; M48.08 Spinal stenosis, sacral and sacrococcygeal region; Z79.82 Long term (current) use of aspirin; Z85.3 Personal history of malignant neoplasm of breast; Z98.84 Bariatric surgery status

== ENCOUNTER → 2020-12-01 | Outpatient (CLI) | payer OTHER ==
[~2020-12-01] MED LIST changes: +MECL-86; +METH-1164 PO
--- NOTE | 2020-12-01 09:57 | REPMRS ---
Patient History The patient states she had a clinical breast exam in 09/2020. Patient is postmenopausal, has history of cancer in the right breast at age 63, and had previous chest radiation therapy at age 63. Family history of breast cancer at age 64 in sister, ovarian cancer at age 25 in daughter. Malignant lumpectomy of the right breast, September 2018. Taking tamoxifen for 2 years. Digital Woman Screen Mammo: December 01, 2020 - Exam #: [id number] Bilateral CC and MLO view(s) were taken. Technologist: Bina Guerrero, Technologist Prior study comparison: December 08, 2019, bilateral digital mammo screening bilat, performed at [facility]. March 31, 2019, right breast digital mammo diagnostic unilateral, performed at [facility]. Screening. This patient?s lifetime risk for the development of invasive breast cancer can?t be calculated due to her age (less than 20 or greater than 85 years) or a prior history of in situ or invasive breast cancer. Digital screening (2D) mammography was performed bilaterally. Additionally, breast tomosynthesis (3D mammography) was performed bilaterally in the CC and MLO projections. Today's exam was compared to the prior exam/exams. By history, the patient has no complaints of a palpable breast abnormality or other significant breast complaints. The patient is status post lumpectomy/chemo radiation therapy due to breast carcinoma. The breasts are unchanged in size and shape. There are no ambika-areas of internal architectural distortion. There are no ambika-soft tissue densities or areas of spiculation. There is unchanged post radiation skin thickening. Once again, stable benign appearing calcifications are seen. IMPRESSION: BI-RADS Category 2- Benign Findings. There is no evidence of malignant alteration of the breasts. Routine bilateral screening mammogram recommended at its regularly scheduled annual interval. The [employer] volumetric breast density category is B, there are scattered areas of fibroglandular densities. This mammogram was read with the assistance of [employer],an FDA approved computer aided detection system for mammography. Negative x-ray reports should not delay surgical consultation if a dominant or clinically suspicious mass is present. Not all breast cancers can be identified by mammography. Therefore, we recommend that you continue to perform regular breast self-examination and physical examination and then promptly contact your physician of any concerns or changes. Adenosis and dense breasts may obscure an underlying neoplasm. Assessment: BI-RADS/ACR category 2 mammogram. Benign Findings. Recommendation Routine screening mammogram of both breasts in 1 year. Electronically Signed By: Branden Putnam DO 12/01/20 [id number]
== END ==
LOC: M WHC 08:44
PROVIDERS: ATTEND Internal Medicine Medical Oncology
DX: Z12.31 Encounter for screening mammogram for malignant neoplasm of breast (principal)